=== PATIENT | male | born 1975 | race Caucasian/White ===

== ENCOUNTER → 2018-02-12 10:17 | Outpatient (CLI) | payer BC, SELFPAY ==
--- NOTE | 2018-02-12 10:25 | CA_ITS ---
PROCEDURE: 2-D M-mode and color Doppler study INDICATIONS FOR THE TEST: Chest pain+ COPD Heart Murmur Tobacco Smoking Palpitations Fatigue Syncope Edema+ Hypertension Diabetes Mellitus Rheumatic Fever SOB MANZO Obesity+Hyperlipidemia Family History HD Additional History PATIENT INFORMATION HEIGHT: 75 WEIGHT:330 GENDER: Male B/P: 2-D/M-MODE INTERPRETATION: 2-D MEASUREMENTS OBSERVED VALUES IN CMS Right Ventricular Dimension (RVDd) 2.2 Interventricular Septum (Thickness)(IVsd) 1.4 Left Ventricular Internal Dimensions(LVIDd) 3.6 Left Ventricular Posterior Wall (Thickness)(LVPWd) 1.3 Aortic Root 3.6 Aortic Cusp Separation 2.4 Left Atrial Dimensions (LAD) 4.7 2D 1. Left atrium is mildly enlarged, left ventricle is normal size, mild concentric left ventricular hypertrophy, visually estimated ejection fraction 55% with no obvious regional wall motion abnormality. 2. The right atrium and right ventricle are relatively normal size and function. 3. The aortic valve is minimally thickened and fibrosed. 4. The mitral and tricuspid valve are grossly normal. 5. The pulmonic valve is poorly visualized. 6. No significant pericardial effusion noted. DOPPLER INTERROGATION: Doppler interrogation of the aortic, mitral and tricuspid valvular presence of mild mitral and tricuspid regurgitation, tricuspid regurgitant jet velocity is insufficient for calculation of the right ventricular systolic pressure, grade 1 diastolic dysfunction seen with tissue Doppler evidence of raised left atrial pressure. CONCLUSION: 1. Mildly enlarged left atrium, normal left ventricular size, mild concentric left ventricular hypertrophy, visually estimated ejection fraction 55% with no obvious regional wall motion abnormality, grade 1 diastolic dysfunction seen with tissue Doppler evidence of raised left atrial pressure. 2. Mild mitral and tricuspid regurgitation 3. No significant pericardial effusion noted.
== END ==
PROVIDERS: Family Provider Family Medicine; PCP Family Medicine; Visit Provider Emergency Medicine
DX: R06.02 Shortness of breath (principal)
CPT/HCPCS: 93306

== ENCOUNTER → 2018-09-07 12:52 | Outpatient (CLI) | payer BC, SELFPAY ==
--- NOTE | 2018-09-07 12:55 | MR_ITS ---
MR cervical spine wo con, MR 3-d myelogram/MRCP HISTORY: Lt sided neck pain that radiates into LT shoulder. LT arm pain, numbness, tingling and weakness in arm and fingers. X3wks. No trauma. No hx neck surgery. ITS.REASON: CERVICAL DISC DISORDER ORDERING PHYSICIAN: Hamida Cloud MD PATIENT AGE: 43 years Comparison: None TECHNIQUE: Standard multiplanar multiecho sequences are performed without contrast. 3-D MIP and myelographic images are also rendered and reviewed FINDINGS: The craniocervical junction has an unremarkable appearance. There is reversal of the cervical lordosis with multilevel cervical spondylosis as outlined below and canal stenosis. C2-C3: Bilateral uncovertebral hypertrophy with bilateral foraminal narrowing. C3-C4: Degenerative disc disease with bulging disc along with facet and ligamentum flavum hypertrophy. The disc is slightly eccentric toward the right minimal right paracentral disc protrusion. There is canal stenosis of 8 mm with mild flattening of the cord anteriorly on the right. There is bilateral lateral recess and foraminal narrowing. C4-C5: Degenerative disc disease with bulging disc and endplate osteophytes somewhat eccentric toward the right with canal stenosis of 10 mm and mild flattening on the anterior and right aspect of the cord anteriorly with mild bilateral foraminal narrowing. C5-C6: Degenerative disc disease with bulging disc and endplate osteophytes with canal stenosis of 8 mm and bulging disc. There is severe bilateral foraminal narrowing slightly more prominent from uncovertebral hypertrophy/disc osteophyte complex with moderate right foraminal narrowing also noted. There is mild to moderate flattening of the cord anteriorly. C6-C7: Degenerative disc disease with bulging disc and endplate osteophytes severe bilateral foraminal narrowing from uncovertebral disc osteophyte complexes C7-T1: Unremarkable. No extruded herniated disc are evident. No obvious fracture or dislocation. IMPRESSION: Multilevel degenerative disc disease with bulging disc and disc osteophyte complexes as well as uncovertebral hypertrophy from C3 to C7 with canal stenosis and bilateral lateral recess and foraminal narrowing. There is flattening of the cord from the canal stenosis. Please see above for detailed description at each level.
== END ==
PROVIDERS: PCP Family Medicine; Visit Provider Family Medicine
DX: M50.10 Cervical disc disorder with radiculopathy, unspecified cervical region (principal)
CPT/HCPCS: 72141; 76376

== ENCOUNTER → 2020-09-29 13:21 | Outpatient (CLI) | payer BC, SELFPAY | PROVIDERS: PCP Family Medicine; Visit Provider Nurse Practitioner | DX: Z20.822 Contact with and (suspected) exposure to COVID-19 (principal) | CPT/HCPCS: U0003 ==

== ENCOUNTER → 2021-03-03 14:19 | Outpatient (CLI) | payer BC, SELFPAY ==
--- NOTE | 2021-03-03 14:23 | XR_ITS ---
PROCEDURE: XR LUMBAR SPINE MIN 4V CLINICAL INDICATION: ACUTE RT SIDED LOW BACK PAIN W/O SCIATICA COMPARISON: No exams were available for comparison FINDINGS: There is normal alignment. There is minimal thoracolumbar curvature convex left. Degenerative disc disease is present from L2-S1 most prominent at the L4-5 level. There is 3 mm retrolisthesis of L3 on L4. There are small anterior osteophytes of the thoracic spine. No acute fracture or dislocation. No lytic or blastic change. IMPRESSION: Degenerative changes as described Dictated by: Shady Short MD 03/03/2021 15:27 Shady Short MD in [place] 03/03/2021 15:27
== END ==
PROVIDERS: PCP Family Medicine; Visit Provider Family Medicine
DX: M54.5 Low back pain (principal)
CPT/HCPCS: 72110

== ENCOUNTER → 2021-07-05 11:20 | Outpatient (CLI) | payer BC, SELFPAY ==
--- NOTE | 2021-07-05 | CA_ITS ---
APPROVED REPORT Exam: Exercise Treadmill Technologist: Cary Waters, Ht: 6 ft 2 in Wt: 330 lbs BSA: 2.69 m2 HR: 78 bpm BP: 132/84 mmHg Medical History Medications: Lisinopril,,,,, Allopurinol,,,,, Stress Test Details Test: Jeet HR Resting HR: 93 bpm Max Heart Rate (APMHR): 173.324914 bpm Max HR Achieved: 159 bpm Target HR (85% APMHR): 147.225150 bpm % of APMHR: 91.91 Recovery HR: 112 bpm BP Resting BP: 129/81 mmHg Max BP: 158/92 mmHg Recovery BP: 121.0/81.0 mmHg ECG Resting ECG: Chest pain Clinical Exercise duration: 06:58 min Highest Stage Achieved: Exercise capacity: 10.1 METs Stress ECG Conclusion Jeet protocol complete Exercised: 6:58 Max HR: 159 % of PM: 92 Max BP: 158/92 METs: 10.1 Test stopped due to: Shortness of breath. Symptoms: No CP (+) SOB during peak exercise. Arrhythmias/Ectopy: Occ PVC. Occ trigemny. ST-T Changes: Less than 1.5mm ST Depression. Conclusion: Images to follow. Test Summary REST . . . . . . . Sitting REST . . . . . . . Standing REST 03:05 0.0 0.0 93 . 129/ 81 . . Stage 1 01:00 10.0 1.7 113 . . . . Stage 1 02:00 10.0 1.7 119 . . . . Stage 1 03:00 10.0 1.7 124 . 150/ 90 . . Stage 2 01:00 12.0 2.5 130 . . . . Stage 2 02:00 12.0 2.5 132 . . . . Stage 2 03:00 12.0 2.5 144 . 158/ 92 . . Stage 3 . . . . . . . Myoview Injected Stage 3 00:58 14.0 3.4 159 . . . Stop exercise at 06:58 RECOVERY 01:00 0.0 0.0 139 . . . . RECOVERY 02:00 0.0 0.0 122 . . . . RECOVERY 03:00 0.0 0.0 120 . 123/ 75 . . RECOVERY 04:00 0.0 0.0 113 . 123/ 75 . . RECOVERY 05:00 0.0 0.0 109 . 121/ 82 . . RECOVERY 06:00 0.0 0.0 109 . 121/ 82 . . RECOVERY 06:49 0.0 0.0 106 . 121/ 82 . . Electronically signed by : Kris Paul MD 07/05/2021 17:52:11
--- NOTE | 2021-07-05 11:27 | NM_ITS ---
APPROVED REPORT Exam: Nuclear Stress Test Indication: Chest pain, Obesity, HTN, Tobacco use, Family history Patient Location: Outpatient Stress Tech: Cary Waters MA Tech:Chen Nichole, ARRT, RT (R)(N) Ht: 6 ft 3 in Wt: 330 lbs HR: 93 bpm BP: 129/81 mmHg BSA: 2.71 m2 BMI: 41.2 History: Chest pain, Obesity, HTN, Tobacco use, Family history Procedure: Patient exercised on Jeet protocol 6:58 minutes and sec, resting heart rate 93 bpm, resting blood pressure 129/81 mmHg, with exercise maximum heart rate achived was 159 bpm which is 92 % of the maximum predicted heart rate and blood pressure was 158/92 mmHg. Test was stopped due to SOA. Patient denied any complaint of chest pain. Patient has Good exercise capacity, achieved 10.1 METs of workload on treadmill, the blood pressure response to exercise was Adequate. Electrocardiogram Resting electrocardiogram shows sinus rhythm, with exercise there is less than 1.[address] segment depression noted from the baseline EKG. The EKG portion of the exercise Myoview is negative for ischemia. Cardiac Stress and Resting SPECT Images: Cardiac Stress and Resting SPECT images were obtained using technetium 99m Myoview 29.6 mCi stress and 10.43 mCi at rest. Gated SPECT for analysis of segmental wall motion and calculation of the ejection fraction also done. Prone images were also obtained. Cardiac stress and resting SPECT images show uniform myocardial activity without segmental perfusion abnormality, computer derived ejection fraction is 58% with no regional wall motion abnormality, right ventricle is normal size and contractility. Conclusion: 1. The EKG portion of the exercise Myoview is negative for ischemia, patient has good exercise capacity achieved 10.1 METs of workload on treadmill, the blood pressure response to exercise was adequate, there was no exercise-induced chest discomfort. 2. No scintigraphic evidence of reversible ischemia seen, computer derived ejection fraction 58% with no regional wall motion abnormality, right ventricle is normal size and contractility. 3. Normal exercise Myoview study. Electronically signed by : Kris Paul MD 07/05/2021 17:56:13
--- NOTE | 2021-07-05 13:22 | HMH.ITSHM ---
Current Home Medications as stated by this patient Raji Magaña or loss control representative. []LISINOPRIL ALLOPURINOL OMEPRAZOLE
== END ==
PROVIDERS: PCP Family Medicine; Visit Provider Family Medicine
DX: R07.9 Chest pain, unspecified (principal)
CPT/HCPCS: 78452; 93017; A9502